=== PATIENT | male | born 1955 | race Caucasian/White ===

== ENCOUNTER 2021-06-27 08:44 | Inpatient (IN) | payer OTHER, MEDICAID ==
[~2021-06-27] VITALS: Ht 190.5 cm; Wt 81.6 kg
[2021-06-27 08:58] VITALS: BP_SYST 193
--- NOTE | 2021-06-27 09:10 | NUR ---
Pt brought by [facility] with c/o substernal chest pain 09/01 pt arrived with high blood pressure , respirations even and unlabored, cap refill <3, VSS, will cont to monitor .
[2021-06-27 09:11] LABS: BASOPHILS % (AUTO) 0.4 % (0.0-2.0); EOSINOPHILS % (AUTO) 0.6 % (0.0-4.0); HEMATOCRIT 38.7 % (36-54); HEMOGLOBIN 13.3 g/dL (14.0-18.0); MEAN CORPUSCULAR HEMOGLOBIN 27 pg (27-31); MEAN CORPUSCULAR HGB CONC 34 % (32-36); MEAN CORPUSCULAR VOLUME 79 fL (79.0-98.0); MONOCYTES # (AUTO) 0.5 K/uL (0.0-1.0); MONOCYTES % (AUTO) 6.5 % (1.7-9.3); NEUTROPHILS # (AUTO) 5.4 K/uL (1.8-7.7); NEUTROPHILS % (AUTO) 77.5 % (40.0-70.0); PLATELET COUNT (AUTO) 345 K/uL (130-430); RED BLOOD CELL COUNT(AUTO) 4.88 MIL/uL (4.2-6.2); RED CELL DISTRIBUTION WIDTH 14.1 % (9.0-15.0)
--- NOTE | 2021-06-27 09:15 | NUR ---
Dr Mcgregor evaluating patient at bedside
[2021-06-27 09:21] LABS: CALCIUM 8.9 mg/dL (8.4-11.0); CREATININE 0.98 mg/dL (0.55-1.30)
[2021-06-27 09:25] LABS: INR 0.9 (0.80-1.20); PROTHROMBIN TIME 9.6 SECS (9.5-12.5)
[2021-06-27 09:35] LABS: ALBUMIN 3.5 g/dL (3.4-4.8); TOTAL BILIRUBIN 0.6 mg/dL (0.0-1.0)
--- NOTE | 2021-06-27 09:47 | NUR ---
pt. resting, denies any chest pain at this time, states "can go home",VSS, IV to right hand
--- NOTE | 2021-06-27 12:26 | NUR ---
report to Janet
--- NOTE | 2021-06-27 13:05 | NUR ---
Pt. requesting to go home, states son will pick him up and take him to his [facility] in [place], Dr. Recio explained to him Troponin level increased and she would like to admit him and continue to monitor, pt. declined and signed AMA papers
--- NOTE | 2021-06-27 13:22 | NUR ---
Dr. Recio spoke with pts. son, son convinced father to be admitted
--- NOTE | 2021-06-27 13:58 | NUR ---
admit orders rec'd from Dr. Weiner
--- NOTE | 2021-06-27 15:00 | NUR ---
Dr. Joe also notified of troponin levels per Dr. Weiner request
[2021-06-27] MEDS ORDERED: ACETAMINOPHEN 325 MG TABLET PO PRN (15:15)
[2021-06-27] MEDS ORDERED: cloNIDine HCL 0.1 MG TABLET PO PRN (15:15)
[2021-06-27] MEDS ORDERED: NITROGLYCERIN 0.4 MG TAB.SUBL SL PRN (15:15)
[2021-06-27] MEDS ORDERED: ZOLPIDEM TARTRATE 5 MG TABLET PO PRN (15:15)
[2021-06-27] MEDS ORDERED: LORazepam 2 MG/ML VIAL IVP PRN (15:15)
[2021-06-27] MEDS ORDERED: MORPHINE 2 MG/ML INJ. SYRINGE IVP PRN (15:15)
--- NOTE | 2021-06-27 16:25 | NUR ---
pt. unaware of home meds, spoke with son requested him to bring list when he comes
[2021-06-27] MEDS: NACL 0.9% 1,000 ML IV SCH (16:32)
--- NOTE | 2021-06-27 16:52 | NUR ---
per pt. request called his pharmacy and med list faxed over
[2021-06-27] MEDS ORDERED: TOLT4CAP PO (17:02)
[2021-06-27] MEDS ORDERED: ROSU20TA2 PO (17:02)
[2021-06-27] MEDS ORDERED: VITA-219 PO (17:02)
[2021-06-27] MEDS ORDERED: CAT1PAT TD (17:02)
[2021-06-27] MEDS ORDERED: VITD2000 PO (17:02)
[2021-06-27] MEDS ORDERED: OMEP40CA20 PO (17:02)
[2021-06-27] MEDS ORDERED: COR12.5 PO (17:02)
[2021-06-27] MEDS ORDERED: CARV25TA55 PO (17:02)
[2021-06-27] MEDS ORDERED: CARB1TAB21 PO (17:02)
[2021-06-27] MEDS ORDERED: ICOS1CAP PO (17:02)
[2021-06-27] MEDS ORDERED: TAMS-11 PO (17:02)
--- NOTE | 2021-06-27 17:02 | NUR ---
Medication reconciliation completed with information provided by pts. pharmacy. medications and dose confirmed, unable to confirm frequency.
[2021-06-27] MEDS: CARVEDILOL 12.5 MG TABLET (COREG) PO SCH (20:06)
[2021-06-27] MEDS ORDERED: METOPROLOL TARTRATE 25 MG TABLET PO SCH (21:00)
--- NOTE | 2021-06-28 02:51 | NUR ---
Patient will be admitted to care of [facility]. Admitted to tele unit. Will go to room 116B. Belongings list completed. Complete and up to date summary report printed. SBAR report to be given at bedside with opportunity for questions. report given to Josseline STOKES
--- NOTE | 2021-06-28 02:56 | NUR ---
ADMISSION NOTE Received patient from ER via ryann, received report from ISRAEL STOKES. Patient admitted with diagnosis of CHEST PAIN. Patient oriented to hospital routine, call light, toileting and safety-patient verbalized understanding.
[2021-06-28] MEDS: CARBIDOPA/LEVODOPA 25/100 MG TABLET PO SCH ×2 (03:08→10:27)
[2021-06-28] MEDS: OXYBUTYNIN CHLORIDE 5 MG TABLET PO SCH ×2 (03:09→10:29)
[2021-06-28 03:11] VITALS: BP_SYST 174
[2021-06-28 04:40] VITALS: BP_SYST 117
--- NOTE | 2021-06-28 06:30 | NUR ---
Denies any chest pain , last cardiac enzymes negative , blood pressure controlled, telemetry NSR, will monitor.
[2021-06-28 06:48] LABS: BASOPHILS % (AUTO) 0.4 % (0.0-2.0); EOSINOPHILS # (AUTO) 0.1 K/uL (0.0-0.4); EOSINOPHILS % (AUTO) 1.1 % (0.0-4.0); HEMATOCRIT 35.4 % (36-54); HEMOGLOBIN 12.2 g/dL (14.0-18.0); LYMPHOCYTES # (AUTO) 1.2 K/uL (1.0-5.5); LYMPHOCYTES % (AUTO) 13.3 % (20.5-51.5); MEAN CORPUSCULAR HEMOGLOBIN 27 pg (27-31); MEAN CORPUSCULAR HGB CONC 34 % (32-36); MEAN CORPUSCULAR VOLUME 80 fL (79.0-98.0); MONOCYTES # (AUTO) 0.7 K/uL (0.0-1.0); MONOCYTES % (AUTO) 7.3 % (1.7-9.3); NEUTROPHILS % (AUTO) 77.9 % (40.0-70.0); PLATELET COUNT (AUTO) 318 K/uL (130-430); RED BLOOD CELL COUNT(AUTO) 4.44 MIL/uL (4.2-6.2); RED CELL DISTRIBUTION WIDTH 14.3 % (9.0-15.0)
[2021-06-28 06:57] LABS: CALCIUM 8.1 mg/dL (8.4-11.0); CREATININE 0.85 mg/dL (0.55-1.30); POTASSIUM 3.8 mmol/L (3.5-5.1)
[2021-06-28] MEDS: NACL 0.9% 1,000 ML IV SCH (07:30)
[2021-06-28] MEDS ORDERED: ASPI-1393 PO (07:34)
[2021-06-28 08:00] VITALS: BP_SYST 124
--- NOTE | 2021-06-28 08:00 | NUR ---
Opening notes: Pt A/Ox4 sitting up in bed. No s/s of respiratory or cardiac distress, denies any chest pain. IV patent and infusing fluids at ordered rate. Fall and safety precautions in place, call light within reach, will continue to monitor.
[2021-06-28] MEDS ORDERED: ASPIRIN 81 MG TAB.CHEW PO SCH (09:00)
[2021-06-28] MEDS ORDERED: TAMSULOSIN HCL 0.4 MG CAP PO SCH (09:00)
[2021-06-28] MEDS ORDERED: ATORVASTATIN 20 MG TABLET PO SCH (09:00)
[2021-06-28] MEDS ORDERED: CLOPIDOGREL BISULFATE 75 MG TABLET PO SCH (09:00)
[2021-06-28] MEDS ORDERED: PANTOPRAZOLE SODIUM 40 MG TAB PO SCH (09:00)
[2021-06-28] MEDS ORDERED: TOLTERODINE TARTRATE ER 2 MG CAP.ER.24H PO SCH (09:00)
[2021-06-28] MEDS: CARVEDILOL 12.5 MG TABLET (COREG) PO SCH (10:29)
[2021-06-28 12:00] VITALS: BP_SYST 141
[2021-06-28 13:32] VITALS: BP_SYST 141
--- NOTE | 2021-06-28 15:01 | NUR ---
D/C Patient Patient given medication reconciliation form and D/C instructions. Exit Care provided. Patient verbalized understanding. MD discussed with patient the results and treatment provided. Ambulatory with steady gait for discharge to home. Patient in stable condition, ID band removed. IV catheter removed, intact and dressing applied, no active bleeding. Rx of Aspirin given. Patient educated on pain management. All belongings sent with patient.
== END 2021-06-28 15:01 | disposition home or self-care (01) | DRG 282 ==
LOC: SED 08:44 → STU 13:58
PROVIDERS: ADMIT General Practice; ATTEND General Practice
DX: I21.4 Non-ST elevation (NSTEMI) myocardial infarction (principal); I10 Essential (primary) hypertension; G20 Parkinson's disease; I25.10 Atherosclerotic heart disease of native coronary artery without angina pectoris; E78.5 Hyperlipidemia, unspecified; N40.0 Benign prostatic hyperplasia without lower urinary tract symptoms; J44.9 Chronic obstructive pulmonary disease, unspecified; K21.9 Gastro-esophageal reflux disease without esophagitis; Z20.822 Contact with and (suspected) exposure to COVID-19; Z95.5 Presence of coronary angioplasty implant and graft; Z87.891 Personal history of nicotine dependence; Z79.82 Long term (current) use of aspirin; I25.2 Old myocardial infarction
CPT/HCPCS: 36415; 71045; 80048; 80053; 82550; 83735; 84484; 85025; 85610-TC; 85730-TC; 93005; 93306; 99285; G0378